=== PATIENT | male | born 1945 | race Caucasian/White ===

== ENCOUNTER 2023-05-01 07:35 | Outpatient (CLI) | payer OTHER, SELFPAY | END 2023-05-01 07:36 | disposition home or self-care (01) | LOC: NFLDREF 23:39 | PROVIDERS: PCP Physician Assistant Medical; Referring Provider Physician Assistant Medical; Visit Provider Physician Assistant Medical | DX: E78.5 Hyperlipidemia, unspecified (principal); I10 Essential (primary) hypertension; Z12.5 Encounter for screening for malignant neoplasm of prostate; Z13.29 Encounter for screening for other suspected endocrine disorder | CPT/HCPCS: 80053; 80061; 84153; 84443 ==

== ENCOUNTER 2024-03-18 07:09 | Outpatient (CLI) | payer OTHER, SELFPAY ==
--- NOTE | 2024-03-18 08:27 | P.ANES_ITS ---
Anesthesia Charges Start Date/Time Anesthesia Start Date: 03/18/24 Anesthesia Start Time: 07:51 Stop Date/Time Anesthesia Stop Date: 03/18/24 Anesthesia Stop Time: 08:25 Summary Extremes of Age - Over 70 or under 1: VICE PRESIDENT OF PROCUREMENT
== END 2024-03-18 07:10 | disposition home or self-care (01) ==
LOC: OP CLINIC 07:10
PROVIDERS: PCP Physician Assistant Medical; Visit Provider Surgery
DX: Z12.11 Encounter for screening for malignant neoplasm of colon (principal); K63.5 Polyp of colon; Z86.010 Personal history of colon polyps
CPT/HCPCS: 00811; 45385; 88305; 99100; J2704

== ENCOUNTER 2024-06-23 08:31 | Outpatient (CLI) | payer OTHER, SELFPAY | END 2024-06-23 08:32 | disposition home or self-care (01) | LOC: NFLDREF 06-27 05:44 | PROVIDERS: PCP Physician Assistant Medical; Referring Provider Physician Assistant Medical; Visit Provider Physician Assistant Medical | DX: E78.2 Mixed hyperlipidemia (principal); I10 Essential (primary) hypertension; E03.8 Other specified hypothyroidism; Z12.5 Encounter for screening for malignant neoplasm of prostate | CPT/HCPCS: 80061; 84439; 84443; G0103 ==

== ENCOUNTER 2024-06-28 09:32 | Outpatient (CLI) | payer OTHER, SELFPAY | END 2024-06-28 09:33 | disposition home or self-care (01) | LOC: FRMREF 09:33 | PROVIDERS: PCP Physician Assistant Medical; Visit Provider Physician Assistant Medical | DX: E78.2 Mixed hyperlipidemia (principal); I10 Essential (primary) hypertension | CPT/HCPCS: 80053 ==

== ENCOUNTER 2025-08-11 08:07 | Outpatient (CLI) | payer OTHER, SELFPAY | END 2025-08-11 08:08 | disposition home or self-care (01) | LOC: NFLDREF 08-16 21:07 | PROVIDERS: PCP Physician Assistant Medical; Referring Provider Physician Assistant Medical; Visit Provider Physician Assistant Medical | DX: E78.2 Mixed hyperlipidemia (principal); I10 Essential (primary) hypertension; N52.8 Other male erectile dysfunction | CPT/HCPCS: 80053; 80061; G0103 ==

== ENCOUNTER 2025-08-17 08:07 | Outpatient (CLI) | payer OTHER, SELFPAY | END 2025-08-17 08:08 | disposition home or self-care (01) | LOC: NFLDREF 08-20 18:39 | PROVIDERS: PCP Physician Assistant Medical; Referring Provider Physician Assistant Medical; Visit Provider Physician Assistant Medical | DX: E03.8 Other specified hypothyroidism (principal) | CPT/HCPCS: 84439 ==